=== PATIENT | male | born 1975 | race Hispanic/Latino ===

== ENCOUNTER 2023-11-10 18:25 | Emergency (ER) | payer SELFPAY ==
[~2023-11-10] VITALS: Ht 167.6 cm; Wt 81.8 kg
[~2023-11-10 18:25] MED LIST: LAMISIL AT1 % EX; OMNICEF300 M1 PO
[2023-11-10] MEDS ORDERED: Diph, Acellular Pertussis, Tet 0.5 ML/VIAL (Tdap) SDV IM ONE (18:30)
[2023-11-10] MEDS ORDERED: CEPHALEXIN MONOHYDRATE 500 MG/CAP PO ONE (18:30)
[2023-11-10] MEDS ORDERED: LIDOCAINE W/ EPINEPHRINE 10 MG/ML INJ STI ONE (18:30)
[2023-11-10] MEDS ORDERED: PERCOCET 5/325M1 TAB PO (19:01)
[2023-11-10] MEDS ORDERED: KEFLEX500 MG PO (19:01)
[2023-11-10] MEDS ORDERED: MOTRIN800 MG PO (19:01)
[2023-11-10 19:27] VITALS: BP 104/64
== END 2023-11-10 19:27 | disposition home or self-care (01) | DRG 605 ==
LOC: ED 18:25
PROC: 0HQGXZZ Repair Left Hand Skin, External Approach (ICD-10-PCS; principal; 2023-11-10)
DX: S61.213A Laceration without foreign body of left middle finger without damage to nail, initial encounter (principal); T22.211A Burn of second degree of right forearm, initial encounter; Y09 Assault by unspecified means